=== PATIENT | male | born 1965 | race Caucasian/White ===

== ENCOUNTER 2019-11-27 15:01 | Emergency (ER) | payer BC, OTHER ==
[2019-11-27] MEDS ORDERED: Sodium Chloride 0.9% 10 ML Syringe FLUSH PRN (15:03)
[2019-11-27 15:34] LABS: CHLORIDE,CL 106 mmol/L (98-107); SODIUM,NA 141 mmol/L (136-145)
[2019-11-27 15:35] LABS: ANION GAP 12.9 mmol/L (10-20)
--- NOTE | 2019-11-27 16:00 | EDM.PDOC ---
ED HPI GENERAL MEDICAL PROBLEM - General Stated Complaint: STROKE CODE Time Seen by Provider: 11/27/19 15:01 Source of Information: Reports: Patient History Limitations: Reports: No Limitations - History of Present Illness INITIAL COMMENTS - FREE TEXT/NARRATIVE: Patient comes emergency department today by personal vehicle from work with a friend from work with concerns of a headache confusion garbled speech and weakness and inability to walk. Initially the patient really had garbled speech and we are unable to get any information from himself. Speaking with the coworker of the patient who drove him here suddenly at 1230 the patient became confused what appeared to be disorientation and very clumsy and leaning to the left. His speech was slurred. Continued on for quite some time until they determine there was really something wrong so they brought him to the emergency department. Upon arrival HPI is unobtainable as the patient is confused and garbled communication and went directly to the CAT scan her. After returning from the CAT scan of the patient is improved. He was alert upon arrival and continues to be alert but is able to communicate his speech is still somewhat slurred but it is understandable. 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 This does not feel like his typical migraines that cause hemiplegia. He relates acutely at 1230 he had a "buzzing" sensation throughout his tentorium. Then his left hand became very clumsy and he was unable to do fine motor skills. He had severe pain down the left side of his body. Has had no recent falls trauma or head injury. He denies any visual disturbance but definitely some difficulty with speaking the words he like to stay. He does see a neurologist at the [facility] who is diagnosed him with a hemiplegic migraines although he relates this is nothing like his episodes in the past which have primarily affected his right side of his body. ED ROS GENERAL - Review of Systems Review Of Systems: See Below Constitutional: Reports: Weakness HEENT: Reports: No Symptoms. Denies: Vertigo, Vision Change Respiratory: Reports: No Symptoms Cardiovascular: Reports: No Symptoms Endocrine: Reports: No Symptoms GI/Abdominal: Reports: No Symptoms : Reports: No Symptoms Skin: Reports: No Symptoms Neurological: Reports: Confusion, Headache, Numbness, Tingling, Trouble Speaking , Difficulty Walking, Weakness, Change in Speech, Gait Disturbance. Denies: Dizziness, Pre-Existing Deficit, Seizure, Syncope Psychiatric: Reports: Anxiety Hematologic/Lymphatic: Reports: No Symptoms Immunologic: Reports: No Symptoms ED EXAM, NEURO - Physical Exam Exam: See Below Text/Narrative:: His exam is somewhat difficult to complete especially his neuro exam as even during his exam some of his findings wax and wane. Somewhat histrionic Exam Limited By: Other (Anxiety as well as faltering waxing and waning neuro exam) General Appearance: Alert Eye Exam: Bilateral Eye: EOMI, Normal Inspection, PERRL Ears: Normal External Exam, Normal TMs Nose: Normal Inspection, Normal Mucosa Throat/Mouth: Normal Inspection, Normal Lips, Normal Oropharynx, Normal Voice Neck: Normal Inspection, Supple Respiratory/Chest: No Respiratory Distress, Lungs Clear, No Accessory Muscle Use Cardiovascular: Normal Peripheral Pulses, Regular Rate, Rhythm, No Murmur GI/Abdominal: Normal Bowel Sounds, Soft, Non-Tender (Male) Exam: Deferred Rectal (Males) Exam: Deferred Neurological: Alert, Ataxia (Left arm and left leg), Abnormal Finger to Nose ( Left arm), Abnormal Light Touch (Left leg), Abnormal Motor (He has no pronator drift with his upper extremities. Initially upon exam he is able to lift up his left leg it does slowly drift back to the bed but he is able to keep it up and shortly thereafter he can only flex the muscles of the legs and not overcome gravity. His right lower extremity is appropriately strength.), Abnormal Pin Prick (Leg) Back Exam: Normal Inspection Extremities: Normal Inspection, Normal Range of Motion, No Pedal Edema, Normal Capillary Refill Psychiatric: Anxious Skin Exam: Warm, Dry, Intact, Normal Color, No Rash EKG INTERPRETATION EKG Date: 11/27/19 Time: 05:13 Rhythm: NSR Rate (Beats/Min): 53 [place]: Normal P-Wave: Present QRS: Normal ST-T: Normal QT: Normal Comparison: NA - No Prior EKG Course - Orders/Labs/Meds Orders: Active Orders 24 hr Category Date Time Status EKG Documentation Completion [RC] STAT Care 11/27/19 15:03 Active Peripheral IV Insertion Adult [OM.PC] Stat Oth 11/27/19 15:03 Ordered Labs: Laboratory Tests 11/27/19 11/27/19 11/27/19 Range/Units 14:58 14:59 14:59 WBC 8.7 (4.0-10.0) x10^3/uL RBC 4.85 (4.5-6.0) x10^6/uL Hgb 14.6 (14.0-18.0) g/dL Hct 42.8 (40.0-52.0) % MCV 88.2 (78.0-93.0) fL MCH 30.1 (26.0-32.0) pg MCHC 34.1 (32.0-36.0) g/dL RDW Coeff of Tee 12.7 (10.0-15.0) % Plt Count 259 (130-400) x10^3/uL Neut % (Auto) 58.9 (50.0-80.0) % Lymph % (Auto) 28.3 (25.0-50.0) % Elbert % (Auto) 11.0 (2.0-11.0) % Eos % (Auto) 1.7 (0.0-4.0) % Baso % (Auto) 0.1 L (0.2-1.2) % PT (10.0-12.8) SEC INR (2.0-3.5) APTT (24.0-36.0) SEC Sodium 141 (136-145) mmol/L Potassium 3.9 (3.5-5.1) mmol/L Chloride 106 (98-107) mmol/L Carbon Dioxide 26 (21-32) mmol/L Anion Gap 12.9 (10-20) mmol/L BUN 15 (7-18) mg/dL Creatinine 1.1 (0.70-1.30) mg/dL Est Cr Clr Drug Dosing TNP Estimated GFR (MDRD) > 60 Glucose 97 (74-106) mg/dL POC Glucose (74-106) mg/dL Lactic Acid (0.4-2.0) mmol/L Calcium 8.3 L (8.5-10.1) mg/dL Corrected Calcium 8.30 L (8.5-10.1) mg/dL Total Bilirubin 0.3 (0.2-1.0) mg/dL AST 34 (15-37) U/L ALT 60 (16-63) U/L Alkaline Phosphatase 129 H (46-116) U/L POC Troponin I (0.00-0.08) ng/mL C-Reactive Protein 0.2 (<=0.9) mg/dL Total Protein 7.7 (6.4-8.2) g/dL Albumin 4.0 (3.4-5.0) g/dL Globulin 3.7 Albumin/Globulin Ratio 1.08 Ethyl Alcohol < 3 (0-3) mg/dL 11/27/19 11/27/19 11/27/19 Range/Units 14:59 14:59 15:05 WBC (4.0-10.0) x10^3/uL RBC (4.5-6.0) x10^6/uL Hgb (14.0-18.0) g/dL Hct (40.0-52.0) % MCV (78.0-93.0) fL MCH (26.0-32.0) pg MCHC (32.0-36.0) g/dL RDW Coeff of Tee (10.0-15.0) % Plt Count (130-400) x10^3/uL Neut % (Auto) (50.0-80.0) % Lymph % (Auto) (25.0-50.0) % [place]bert % (Auto) (2.0-11.0) % Eos % (Auto) (0.0-4.0) % Baso % (Auto) (0.2-1.2) % PT 10.0 (10.0-12.8) SEC INR 0.9 L (2.0-3.5) APTT 27.0 (24.0-36.0) SEC Sodium (136-145) mmol/L Potassium (3.5-5.1) mmol/L Chloride (98-107) mmol/L Carbon Dioxide (21-32) mmol/L Anion Gap (10-20) mmol/L BUN (7-18) mg/dL Creatinine (0.70-1.30) mg/dL Est Cr Clr Drug Dosing Estimated GFR (MDRD) Glucose (74-106) mg/dL POC Glucose (74-106) mg/dL Lactic Acid 0.9 (0.4-2.0) mmol/L Calcium (8.5-10.1) mg/dL Corrected Calcium (8.5-10.1) mg/dL Total Bilirubin (0.2-1.0) mg/dL AST (15-37) U/L ALT (16-63) U/L Alkaline Phosphatase (46-116) U/L POC Troponin I 0.00 (0.00-0.08) ng/mL C-Reactive Protein (<=0.9) mg/dL Total Protein (6.4-8.2) g/dL Albumin (3.4-5.0) g/dL Globulin Albumin/Globulin Ratio Ethyl Alcohol (0-3) mg/dL 11/27/19 Range/Units 15:12 WBC (4.0-10.0) x10^3/uL RBC (4.5-6.0) x10^6/uL Hgb (14.0-18.0) g/dL Hct (40.0-52.0) % MCV (78.0-93.0) fL MCH (26.0-32.0) pg MCHC (32.0-36.0) g/dL RDW Coeff of Tee (10.0-15.0) % Plt Count (130-400) x10^3/uL Neut % (Auto) (50.0-80.0) % Lymph % (Auto) (25.0-50.0) % [place]bert % (Auto) (2.0-11.0) % Eos % (Auto) (0.0-4.0) % Baso % (Auto) (0.2-1.2) % PT (10.0-12.8) SEC INR (2.0-3.5) APTT (24.0-36.0) SEC Sodium (136-145) mmol/L Potassium (3.5-5.1) mmol/L Chloride (98-107) mmol/L Carbon Dioxide (21-32) mmol/L Anion Gap (10-20) mmol/L BUN (7-18) mg/dL Creatinine (0.70-1.30) mg/dL Est Cr Clr Drug Dosing Estimated GFR (MDRD) Glucose (74-106) mg/dL POC Glucose 124 H (74-106) mg/dL Lactic Acid (0.4-2.0) mmol/L Calcium (8.5-10.1) mg/dL Corrected Calcium (8.5-10.1) mg/dL Total Bilirubin (0.2-1.0) mg/dL AST (15-37) U/L ALT (16-63) U/L Alkaline Phosphatase (46-116) U/L POC Troponin I (0.00-0.08) ng/mL C-Reactive Protein (<=0.9) mg/dL Total Protein (6.4-8.2) g/dL Albumin (3.4-5.0) g/dL Globulin Albumin/Globulin Ratio Ethyl Alcohol (0-3) mg/dL Meds: Medications Discontinued Medications Generic Name Dose Route Start Last Admin Trade Name Freq PRN Reason Stop Dose Admin Alteplase, Recombinant 5.7 mg 11/27/19 21:09 Activase IVPUSH 11/27/19 21:10 .BOLUS ONE Alteplase, Recombinant 51.5 mg 11/27/19 21:11 Activase IV 11/27/19 21:12 .INFUSION ONE Iopamidol 100 ml 11/27/19 16:01 11/27/19 16:02 Isovue-300 (61%) IVPUSH 11/27/19 16:02 100 ml ONETIME ONE Administration Sodium Chloride 10 ml 11/27/19 15:03 Saline Flush FLUSH ASDIRECTED PRN Keep Vein Open - Re-Assessments/Exams Free Text/Narrative Re-Assessment/Exam: 11/27/19 21:03 Due to the patient's presentation stroke code was activated immediately upon the patient's arrival. EKG shows a normal sinus rhythm without ST elevation or depression. Glucose was appropriate. CT scan without contrast per radiology shows no acute hemorrhage or infarct. CTA head and neck completed. Dr. Peterson (neurologist stroke) national accounts recruiter at [place] was consulted immediately. He did have the WO contrast available at the time of discussion. I reviewed the [facility] ER COURSE findings and concerns especially of the hemiplegic migraines as well as his waxing and waning neuro exam that did improve with his speech but his extremeties are still weak with an NIH 7. His guidance was to offer and proceed with TPA if the patient consents and meets the criteria. I explained the risk of the TPA and our concerns for a stroke at this time. The risk of or intracranial hemorrhage from the TPA was explained as well of the benefits of arresting a evolving stroke. His questions were answered and he would like to proceed with the TPA after the RISK tool for TPA was completed and no contraindications identified. The patient was given a bolus of TPA and then started on the infusion. Ambulance was summoned earlier for rapid transport to the stroke center in [place]. His NIH on discharge was 6. Departure - Departure Time of Disposition: 15:50 Disposition: DC/Tfer to Acute Hospital 02 Clinical Impression: Stroke Qualifiers: CVA mechanism: unspecified Qualified Code(s): I63.9 - Cerebral infarction, unspecified - Discharge Information Referrals: PCP,None [Primary Care Provider] - Forms: Interfacility Transfer ROBERT Critical Care Note - Critical Care Note Total Time (mins): 60 (60 minutes of critical care time spent in direct patient care management care coordinating and consultation with specialist as well as risk stratefication of TPA for this patient.) Sepsis Event Note - Focused Exam Date Exam was Performed: 11/27/19 Time Exam was Performed: 21:14 - My Orders Last 24 Hours: My Active Orders 11/27/19 15:03 EKG Documentation Completion [RC] STAT Peripheral IV Insertion Adult [OM.PC] Stat - Assessment/Plan Last 24 Hours: My Active Orders 11/27/19 15:03 EKG Documentation Completion [RC] STAT Peripheral IV Insertion Adult [OM.PC] Stat Assessment:: Suspected Stroke TPA administration. Plan: Transfer to [facility] Stroke Code.
[2019-11-27] MEDS ORDERED: Iopamidol 612 MG/ML 100 ML Bottle IVPUSH ONE (16:01)
--- NOTE | 2019-11-27 16:09 | CT ---
[id number] CT/CTA Head Neck EXAM: CT angiogram head and neck INDICATION: ACUTE NEURO STATUS CHANGE. STROKE. COMPARISON: None. DISCUSSION: Aortic arch: The partially imaged aortic arch is normal in caliber with a conventional branching morphology. Right carotid artery: Normal in caliber. No significant stenosis or other abnormality. Left carotid artery: Normal in caliber. No significant stenosis or other abnormality. Right vertebral artery: Normal in caliber. No significant stenosis or other abnormality. Left vertebral artery: Diminutive in caliber throughout its length, ending as PICA. Findings normal variant of anatomy. Basilar artery: Normal in caliber. No significant stenosis or other abnormality. 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 No evidence of large vessel occlusion. Dural sinuses, jugular veins and cerebral veins: Limited evaluation of the cerebral veins, dural sinuses and jugular veins is unremarkable. Brain parenchyma: No evidence of intracranial hemorrhage or abnormal enhancement. Neck soft tissues: Unremarkable. Osseous structures: Spondylosis. IMPRESSION: Normal CT examination of the brain. No large vessel occlusion or other significant abnormality on the angiogram. Results relayed to ordering provider at time of dictation. Zheng Cardona MD 11/27/19 [id number] Thank you for allowing us to participate in the care of your patient.
== END 2019-11-27 16:10 | disposition short-term general hospital (02) ==
LOC: VM.ED 15:01
DX: I63.9 Cerebral infarction, unspecified (principal)
CPT/HCPCS: 36415; 37195; 70496; 70498; 80053; 80307; 82962; 83605; 84484; 85025; 85610; 85730; 86140; 93005; 99291; Q9967; 93010; 99284-GF